=== PATIENT | female | born 1965 | race Caucasian/White ===

== ENCOUNTER 2017-11-12 13:07 | Emergency (ER) | payer OTHER ==
[~2017-11-12] VITALS: Ht 162.6 cm; Wt 95.4 kg
[2017-11-12 13:38] LABS: MCH 29.5 PG (29.0-34.0); MCHC 33.3 G/DL (30.0-36.0); MCV 88.4 FL (83-99); PLATELET COUNT 240 K/uL (156-360); RBC DIS.WIDTH-CV 13.3 % (11.8-14.6); RBC DIS.WIDTH-SD 43.2 % (39-53); RED BLOOD COUNT 4.41 M/uL (3.80-5.20); WHITE BLOOD COUNT 5.8 K/uL (4.1-10.2)
[2017-11-12 13:59] LABS: TROP-I INTERPRETATION NEGATIVE; TROPONIN-I 0.01 ng/mL (0.0-0.30)
[2017-11-12 14:00] LABS: CHLORIDE 106 MEQ/L (99-109); POTASSIUM 3.8 MEQ/L (3.7-5.4); SODIUM 141 MEQ/L (136-147)
[2017-11-12 14:05] LABS: CREATININE 0.8 MG/DL (0.6-1.3); GFR ESTIMATE (CALCULATED) > 59 mL/min/; GLUCOSE 89 mg/dL (70-99); UREA NITROGEN (BUN) 11 mg/dL (9-23)
[2017-11-12 17:02] LABS: TROP-I INTERPRETATION NEGATIVE; TROPONIN-I 0.03 ng/mL (0.0-0.30)
[2017-11-12 17:27] VITALS: BP 130/93
== END 2017-11-12 15:41 | disposition home or self-care (01) ==
LOC: EME 13:07
PROVIDERS: Physician Assistant
DX: R00.2 Palpitations (principal); I10 Essential (primary) hypertension; F32.9 Major depressive disorder, single episode, unspecified
CPT/HCPCS: 71046; 80048; 84484; 85027; 93005; 99281; 99284